=== PATIENT | female | born 2000 | race Asian ===

== ENCOUNTER 2020-05-04 11:54 | Emergency (ER) | payer MEDICAID, OTHER ==
[2020-05-04] MEDS ORDERED: PROMETHAZINE INJ 25 MG/ML (PHENERGAN) AMP IVP STA (12:08)
[2020-05-04] MEDS ORDERED: diphenhydrAMINE 50 MG/ML INJ (BENADRYL) IV STA (12:08)
[2020-05-04] MEDS ORDERED: LACTATED RINGERS 1,000 ML IV STA (12:08)
[2020-05-04] MEDS ORDERED: ACETAMINOPHEN 500 MG TAB (TYLENOL) PO STA (12:08)
--- NOTE | 2020-05-04 12:08 | ED Headache ---
General Chief Complaint: Head/Cervical Problems Stated Complaint: HEADACHE; VOMITING Source: patient Exam Limitations: no limitations History of Present Illness Date Seen by Provider: May 04, 2020 Time Seen by Provider: 12:06 Initial Comments 20-year-old female presents with a migraine. Patient has known problems with migraines. She reports she is 11 weeks has had a ultrasound shows intrauterine . Reports that since she became her migraines seem to be more frequent. She's had some vomiting and hard time keeping anything down. She tried some Tylenol yesterday with minimal relief. She denies any cough, fever, chills, diarrhea, vision changes or other systemic complaints. She has no vaginal bleeding or cramping. Allergies and Home Medications Allergies Coded Allergies: No Known Drug Allergies (Unverified , 05/04/20) Patient Home Medication List Home Medication List Reviewed: Yes Review of Systems Review of Systems Constitutional: No chills, No fever Eyes: No Symptoms Reported Ears, Nose, Mouth, Throat: no symptoms reported Respiratory: no symptoms reported Cardiovascular: no symptoms reported Gastrointestinal: nausea, vomiting Genitourinary: see HPI : Yes Musculoskeletal: no symptoms reported Skin: no symptoms reported Psychiatric/Neurological: No Symptoms Reported Past Wwsyptv-Hcnsmj-Pfonmh Hx Past Med/Social Hx: Reviewed Nursing Past Med/Soc Hx Patient Social History Recent Foreign Travel: No Contact w/Someone Who Travel: No Physical Exam Vital Signs Capillary Refill : Height, Weight, BMI Height: '" Weight: lbs. oz. kg; BMI Method: General Appearance: WD/WN, no apparent distress HEENT: PERRL/EOMI, normal ENT inspection Neck: full range of motion, supple Cardiovascular: regular rate, rhythm Respiratory: lungs clear, normal breath sounds, no respiratory distress Gastrointestinal: non tender, soft Psychiatric: alert, oriented x 3 Crainal Nerves: normal speech, PERRL Coordination/Gait: normal gait Motor/Sensory: no motor deficit, no sensory deficit Skin: normal color, warm/dry Progress/Results/Core Measures Results/Orders My Orders Orders - KENNEDY CARTER DO Promethazine Injection (Phenergan Injec (05/04/20 12:08) Lactated Ringers (Lr 1000 Ml Iv Solution (05/04/20 12:08) Ed Iv/Invasive Line Start (05/04/20 12:08) Diphenhydramine Injection (Benadryl Inje (05/04/20 12:08) Acetaminophen Tablet (Tylenol Tablet) (05/04/20 12:08) Departure Impression Primary Impression: Migraine Qualified Codes: G43.909 - Migraine, unspecified, not intractable, without status migrainosus Additional Impression: Qualified Codes: Z3A.11 - 11 weeks gestation of Disposition: 01 HOME, SELF-CARE Condition: Stable Departure-Patient Inst. Referrals: SELF,KB NASSAR (PCP/Family) Primary Care Physician Patient Instructions: Migraine Headache (DC) Add. Discharge Instructions: Follow-up with your OB in the next 2-3 days for continuation of care, recheck at days complaints All discharge instructions reviewed with patient and/or family. Voiced understanding. KENNEDY CARTER DO May 04, 2020 12:08
[2020-05-04 13:20] VITALS: BP 116/70
== END 2020-05-04 13:21 | disposition home or self-care (01) ==
LOC: ER FS 11:56
DX: O26.891 Other specified pregnancy related conditions, first trimester (principal); G43.909 Migraine, unspecified, not intractable, without status migrainosus; Z3A.11 11 weeks gestation of pregnancy

== ENCOUNTER 2022-03-06 09:59 | Emergency (ER) | payer MEDICAID ==
[~2022-03-06] VITALS: Ht 149.9 cm; Wt 71.2 kg
[2022-03-06] MEDS ORDERED: NS IV 1000 ML 1,000 ML IV SCH (10:15)
[2022-03-06 10:30] LABS: BASOPHILS % (AUTO) 0 % (0-10); EOSINOPHILS % (AUTO) 0 % (0-10); HEMATOCRIT 31 % (35-52); HEMOGLOBIN 10.2 g/dL (11.5-16.0); LYMPHOCYTES # (AUTO) 1.3 10^3/uL (1.0-4.0); LYMPHOCYTES % (AUTO) 15 % (12-44); MEAN CORPUSCULAR HEMOGLOBIN 30 pg (25-34); MEAN CORPUSCULAR HGB CONC 33 g/dL (32-36); MEAN CORPUSCULAR VOLUME 91 fL (80-99); MEAN PLATELET VOLUME 10.6 fL (9.0-12.2); MONOCYTES # (AUTO) 0.9 10^3/uL (0.0-1.0); MONOCYTES % (AUTO) 11 % (0-12); NEUTROPHILS % (AUTO) 73 % (42-75); PLATELET COUNT 140 10^3/uL (130-400); WHITE BLOOD COUNT 8.2 10^3/uL (4.3-11.0)
[2022-03-06 10:52] LABS: ALANINE AMINOTRANSFERASE 13 U/L (0-55); ALBUMIN 3.5 GM/DL (3.2-4.5); ALKALINE PHOSPHATASE 89 U/L (40-136); BILIRUBIN,TOTAL < 0.2 MG/DL (0.1-1.0); BUN/CREATININE RATIO 13; CALCIUM 8.6 MG/DL (8.5-10.1); CARBON DIOXIDE 20 MMOL/L (21-32); CHLORIDE 103 MMOL/L (98-107); GFR ESTIMATED 143; GLUCOSE 155 MG/DL (70-105); POTASSIUM 3.6 MMOL/L (3.6-5.0); SODIUM 133 MMOL/L (135-145); TOTAL PROTEIN 6.4 GM/DL (6.4-8.2)
[2022-03-06] MEDS ORDERED: IOHEXOL 350 MG/ML 100 ML (OMNIPAQUE 350) VIAL IV ONE (11:15)
[2022-03-06] MEDS ORDERED: HOLD METFORMIN - RECEIVED CONTRAST 20 ML VIAL IV SCH (11:15)
[2022-03-06] MEDS ORDERED: NS 100 ML (IVPB) BAG IV ONE (11:15)
[2022-03-06 11:28] LABS: BILIRUBIN,URINE NEGATIVE (NEGATIVE); CLARITY,URINE CLEAR; COLOR,URINE YELLOW; GLUCOSE, URINE (UA) TRACE (NEGATIVE); KETONES,URINE NEGATIVE (NEGATIVE); LEUKOCYTE ESTERASE ,URINE 2+ (NEGATIVE); NITRITE,URINE NEGATIVE (NEGATIVE); PROTEIN,URINE NEGATIVE (NEGATIVE)
[2022-03-06 11:31] LABS: BACTERIA,URINE FEW /HPF; WBC,URINE 50-100 /HPF
--- NOTE | 2022-03-06 11:34 | ED General ---
General Chief Complaint: COVID19 Suspect/Confirmed Stated Complaint: COVID+; SOB Nursing Triage Note: Patient reports she has had generalized aches and diarrhea since yesterday. She reports she woke at 0400 this morning with shortness of breath, lightheadedness, and chest heaviness. Source of Information: Patient Exam Limitations: No Limitations History of Present Illness Date Seen by Provider: Mar 06, 2022 Time Seen by Provider: 10:30 Initial Comments Patient is a 21-year-old G2, P1 estimated 32-week gestation female diagnosed with COVID earlier today who presents with chest pain chest heaviness, body aches and increased shortness of breath. Chest heaviness is worse with exertion. Patient reports nonproductive cough. Denies fever chills, nausea vomiting and sweats. Denies increased leg pain or swelling. Denies abdominal pain, cramping, urinary frequency urgency, vaginal discharge or fluid leakage. Patient reports normal quickening. No other acute symptoms or complaints. No complications with current . Patient's STAFF NUCLEAR MEDICINE TECHNOLOGIST is Dr. Garrido. Timing/Duration: 4-6 Hours Severity: Moderate Modifying Factors: improves with Other Associated Systoms: Other Allergies and Home Medications Allergies Coded Allergies: No Known Drug Allergies (Unverified , 05/04/20) Patient Home Medication List Home Medication List Reviewed: Yes Review of Systems Review of Systems Constitutional: see HPI EENTM: see HPI Respiratory: see HPI Cardiovascular: see HPI Gastrointestinal: see HPI Genitourinary: see HPI Musculoskeletal: see HPI Skin: see HPI Psychiatric/Neurological: See HPI Hematologic/Lymphatic: See HPI Immunological/Allergic: see HPI All Other Systems Reviewed Negative Unless Noted: No Past Icrqidv-Saxdtc-Bzkmen Hx Patient Social History Tobacco Use?: No Substance use?: No Alcohol Use?: No Pt feels they are or have been: No Seasonal Allergies Seasonal Allergies: No Past Medical History Surgeries: No Respiratory: No Cardiac: No Neurological: No Genitourinary: No Gastrointestinal: No Musculoskeletal: No Endocrine: No HEENT: No Cancer: No Psychosocial: No Integumentary: No Blood Disorders: No Adverse Reaction/Blood Tranf: No Physical Exam Vital Signs Vital Signs - First Documented 03/06/22 10:03 Temp 36.8 Pulse 124 Resp 16 B/P (MAP) 126/60 (82) Pulse Ox 99 O2 Delivery Room Air Capillary Refill : Less Than 3 Seconds Height, Weight, BMI Height: '" Weight: lbs. oz. kg; 31.00 BMI Method: General Appearance: No Apparent Distress, WD/WN Eyes: Bilateral Eye Normal Inspection, Bilateral Eye PERRL, Bilateral Eye EOMI HEENT: PERRL/EOMI, Normal ENT Inspection, Pharynx Normal Neck: Full Range of Motion, Normal Inspection, Supple Respiratory: Lungs Clear, Other (Tachypnea) Cardiovascular: Tachycardia Gastrointestinal: Non Tender, Soft, Other (Gravid abdomen appropriate for gestational age) Extremity: Non Tender, No Calf Tenderness Neurologic/Psychiatric: Alert, Oriented x3 Skin: Normal Color Focused Exam Sepsis Stage: Ruled Out Progress/Results/Core Measures Suspected Sepsis SIRS Temperature: Pulse: 124 Respiratory Rate: 16 Laboratory Tests 03/06/22 10:25: White Blood Count 8.2 Blood Pressure 126 /60 Mean: 82 Laboratory Tests 03/06/22 10:25: Creatinine 0.40L, Platelet Count 140, Total Bilirubin < 0.2 Results/Orders Lab Results Laboratory Tests Test 03/06/22 10:25 03/06/22 11:20 Range/Units White Blood Count 8.2 4.3-11.0 10^3/uL Red Blood Count 3.36 L 3.80-5.11 10^6/uL Hemoglobin 10.2 L 11.5-16.0 g/dL Hematocrit 31 L 35-52 % Mean Corpuscular Volume 91 80-99 fL Mean Corpuscular Hemoglobin 30 25-34 pg Mean Corpuscular Hemoglobin Concent 33 32-36 g/dL Red Cell Distribution Width 14.5 10.0-14.5 % Platelet Count 140 130-400 10^3/uL Mean Platelet Volume 10.6 9.0-12.2 fL Immature Granulocyte % (Auto) 1 % Neutrophils (%) (Auto) 73 42-75 % Lymphocytes (%) (Auto) 15 12-44 % Monocytes (%) (Auto) 11 0-12 % Eosinophils (%) (Auto) 0 0-10 % Basophils (%) (Auto) 0 0-10 % Neutrophils # (Auto) 6.0 1.8-7.8 10^3/uL Lymphocytes # (Auto) 1.3 1.0-4.0 10^3/uL Monocytes # (Auto) 0.9 0.0-1.0 10^3/uL Eosinophils # (Auto) 0.0 0.0-0.3 10^3/uL Basophils # (Auto) 0.0 0.0-0.1 10^3/uL Immature Granulocyte # (Auto) 0.0 0.0-0.1 10^3/uL D-Dimer 1.10 H 0.00-0.49 UG/ML Sodium Level 133 L 135-145 MMOL/L Potassium Level 3.6 3.6-5.0 MMOL/L Chloride Level 103 98-107 MMOL/L Carbon Dioxide Level 20 L 21-32 MMOL/L Anion Gap 10 5-14 MMOL/L Blood Urea Nitrogen 5 L 7-18 MG/DL Creatinine 0.40 L 0.60-1.30 MG/DL Estimat Glomerular Filtration Rate 143 BUN/Creatinine Ratio 13 Glucose Level 155 H 70-105 MG/DL Calcium Level 8.6 8.5-10.1 MG/DL Corrected Calcium 9.0 8.5-10.1 MG/DL Total Bilirubin < 0.2 0.1-1.0 MG/DL Aspartate Amino Transf (AST/SGOT) 18 5-34 U/L Alanine Aminotransferase (ALT/SGPT) 13 0-55 U/L Alkaline Phosphatase 89 40-136 U/L Troponin I < 0.30 <0.30 NG/ML C-Reactive Protein 1.27 H <0.50 MG/DL Pro-B-Type Natriuretic Peptide 45.3 <125.0 PG/ML Total Protein 6.4 6.4-8.2 GM/DL Albumin 3.5 3.2-4.5 GM/DL Urine Color YELLOW Urine Clarity CLEAR Urine pH 7.0 5-9 Urine Specific [place] <=1.005 1.016-1.022 Urine Protein NEGATIVE NEGATIVE Urine Glucose (UA) TRACE H NEGATIVE Urine Ketones NEGATIVE NEGATIVE Urine Nitrite NEGATIVE NEGATIVE Urine Bilirubin NEGATIVE NEGATIVE Urine Urobilinogen 0.2 < = 1.0 MG/DL Urine Leukocyte Esterase 2+ H NEGATIVE Urine RBC (Auto) NEGATIVE NEGATIVE Urine RBC NONE /HPF Urine WBC 50-100 H /HPF Urine Squamous Epithelial Cells 5-10 /HPF Urine Crystals NONE /LPF Urine Bacteria FEW H /HPF Urine Casts NONE /LPF Urine Mucus NEGATIVE /LPF Urine Culture Indicated YES My Orders Orders - AFTAB BALES DO Cbc With Automated Diff (03/06/22 10:14) Comprehensive Metabolic Panel (03/06/22 10:14) Ns Iv 1000 Ml (Sodium Chloride 0.9%) (03/06/22 10:15) Heart Tones (03/06/22 10:14) Troponin I Fs (03/06/22 10:15) Fibrin Degradation Products (03/06/22 10:15) Ekg Tracing (03/06/22 10:15) Chest 1 View Ap/Pa Only (03/06/22 10:47) Crp Fs (03/06/22 10:47) Probnp Fs (03/06/22 10:48) Ua Culture If Indicated (03/06/22 10:48) Creatine Kinase (03/06/22 10:25) Ct Angio Chest W (03/06/22 11:04) Iohexol Injection (Omnipaque 350 Mg/Ml 1 (03/06/22 11:15) Received Contrast (Hold Metformin- Contr (03/06/22 11:15) Ns (Ivpb) (Sodium Chloride 0.9% Ivpb Bag (03/06/22 11:15) Urine Culture (03/06/22 11:20) Medications Given in ED Current Medications Medications Dose Ordered Sig/Nara Route Start Time Stop Time Status Last Admin Dose Admin Iohexol 100 ml ONCE ONCE IV 03/06/22 11:15 03/06/22 11:16 DC 03/06/22 11:48 80 ML Sodium Chloride 100 ml ONCE ONCE IV 03/06/22 11:15 03/06/22 11:16 DC 03/06/22 11:49 100 ML Vital Signs/I&O 03/06/22 10:03 Temp 36.8 Pulse 124 Resp 16 B/P (MAP) 126/60 (82) Pulse Ox 99 O2 Delivery Room Air Capillary Refill : Less Than 3 Seconds Blood Pressure Mean: 82 Departure Communication (Admissions) EKG: Sinus tach, moderate T wave abnormality in anterior T waves. CTA chest: No acute chest findings per radiology report Chest x-ray: No acute findings Patient with persistent tachycardia and tachypnea with chest pain and chest heaviness along with shortness of breath. Chest rate x-ray unremarkable. Lung sounds are clear. CTA chest negative. Troponin negative.'s findings most consistent with COVID illness. Case reviewed with the patient's STAFF NUCLEAR MEDICINE TECHNOLOGIST. Recommendations for supportive care, Paxlovid, home monitoring and office follow-up. Return precautions reviewed. Patient verbalizes understanding agreement with discharge instructions prior to departure. Impression Primary Impression: Chest pain Additional Impression: COVID Disposition: 01 HOME, SELF-CARE Condition: Stable Departure-Patient Inst. Decision time for Depature: 12:45 Referrals: KB CHEN MD (PCP) Primary Care Physician Patient Instructions: COVID-19 Overview Add. Discharge Instructions: You were evaluated in the emergency department for chest pain. EKG, labs and imaging studies were performed and do not show current evidence of COVID complications. Please increase fluids and take newly prescribed medications as directed. You may take Tylenol as needed for pain continue to stay home and self quarantine. Contact Dr. Garrido office on Monday and provide update to the office staff. Return to the ED if new or worsening symptoms. All discharge instructions reviewed with patient and/or family. Voiced understanding. Scripts Benzonatate (TESSALON PERLES) 100 Mg Capsule 200 MG PO TID, #20 CAP Prov: AFTAB BALES DO 03/06/22 Nirmatrelvir/Ritonavir (Paxlovid Co-Pack (Eua)) 150 Mg X 2-100 Mg Tablet 1 EACH PO UD for 5 Days, #1 EACH Prov: AFTAB BALES DO 03/06/22 Work/School Note: Work Release Form Date Seen in the Emergency Department: Mar 06, 2022 Return to Work: Mar 14, 2022 Restrictions: No Restrictions AFTAB BALES DO Mar 06, 2022 11:34
--- NOTE | 2022-03-06 12:17 | Diagnostic Imaging Report ---
EXAMINATION: CT angiography of the chest. TECHNIQUE: Contrast enhanced thin section helical images were obtained through the chest with intravenous contrast timed for the optimal opacification of the arterial structures per CTA protocol. Post-processing, reconstructions and interpretation of angiographic images of the vessels was performed. 3D MIP reconstructions were performed and reviewed. All CT scans use one or more of the following dose optimizing techniques: automated exposure control, MA and/or KvP adjustment based on a patient size and exam type, or iterative reconstruction. HISTORY: COVID positive, chest pain, . COMPARISON: None available. FINDINGS: Vascular: There are no filling defects seen within the pulmonary arteries. Thoracic aorta is normal in caliber. Thyroid: The thyroid is normal. Mediastinum: Heart size is normal without significant pericardial effusion. No suspicious lymphadenopathy. Lungs and airways: A right upper azygos lobe is present. No consolidation, pleural effusion, or pneumothorax. The airways are normal. Upper abdomen: The subphrenic structures are normal. Musculoskeletal: No suspicious osseous lesion or compression fracture. IMPRESSION: 1. No findings of pulmonary embolus or other acute abnormality in the chest. Dictated by: Dictated on workstation # [id number]
[2022-03-06] MEDS ORDERED: BENZ100C18 PO (12:47)
[2022-03-06] MEDS ORDERED: NIRM1TAB PO (12:47)
[2022-03-06 13:05] VITALS: BP 124/79
--- NOTE | 2022-03-06 16:29 | Diagnostic Imaging Report ---
EXAMINATION: Chest 1 view. HISTORY: Chest pain. COMPARISON: None available. FINDINGS: Heart size and pulmonary vasculature are normal. The lungs are clear without consolidation, pleural effusion or pneumothorax. The osseous structures are intact. The left lung base is not entirely visualized. IMPRESSION: No acute radiographic abnormality in the visualized chest. Dictated by: Dictated on workstation # [id number]
== END 2022-03-06 13:05 | disposition home or self-care (01) ==
LOC: EDUNIT# 09:59 → ER FS 10:02
DX: O98.513 Other viral diseases complicating pregnancy, third trimester (principal); U07.1 COVID-19; O26.893 Other specified pregnancy related conditions, third trimester; R07.89 Other chest pain; Z28.310 Unvaccinated for COVID-19; Z73.0 Burn-out; Z3A.32 32 weeks gestation of pregnancy
CPT/HCPCS: 36415; 71045; 71275; 80053; 81000; 82550; 83880; 84484; 85025; 85379; 86141; 87088; 93005; Q9967

== ENCOUNTER → 2023-05-24 | Outpatient (CLI) | payer BC ==
[~2023-05-24] MED LIST: BENZ100C18 PO; NIRM1TAB PO
--- NOTE | 2023-05-24 16:42 | Diagnostic Imaging Report ---
INDICATION: anatomy survey TECHNIQUE: Multiple real-time grayscale images were obtained over the gravid uterus. COMPARISON: None FINDINGS: Single live intrauterine is in transverse lie. Placenta is posterior and fundal in position and there is no previa. SONAM is normal at 16.22 cm. Due to advanced gestational age, maternal adnexa are not well evaluated. The following anatomy is visualized and normal: Urinary bladder, three-vessel cord, left ventricular outflow tract, bilateral upper extremities, bilateral lower extremities, stomach, cisterna magna, cerebellum, cerebral ventricles, right ventricular outflow tract, umbilical cord insertion, lips/nose, profile, four-chamber heart, kidneys and spine. Biometrical measurements are as follows: Biparietal 4.84 cm, age 20 weeks 5 days. Head circumference 17.39 cm, age 20 weeks 0 days. Abdominal circumference 14.83 cm, age 20 weeks 1 days. Femur length 3.09 cm, age 19 weeks 5 days. Sonographic estimate age: 20 weeks 1 days. Sonographic estimated date of delivery: 10/10/2023. Estimated Weight: 319 gm (+/- 47 gm). LMP percentile: 32%. heart rate: 155 beats per minute. number: 1 of 1. IMPRESSION: Single live intrauterine has normal anatomy survey. Dictated by: Dictated on workstation # [id number]
== END ==
LOC: RAD 14:07
PROVIDERS: ATTEND Nurse Practitioner Women's Health
DX: Z34.02 Encounter for supervision of normal first pregnancy, second trimester (principal)
CPT/HCPCS: 76805